=== PATIENT | female | born 1940 | race African-American/Black ===

== ENCOUNTER 2022-09-10 16:18 | Emergency (ER) | payer OTHER ==
[~2022-09-10] VITALS: Ht 157.5 cm; Wt 45.0 kg
[2022-09-10] MEDS ORDERED: SODIUM CHLORIDE 0.9% 500 ML IVB ONE (16:45)
[2022-09-10 17:15] LABS: Basophils # (auto) 0.1 10 ^3/uL (0-0.2); Basophils % (auto) 3.2 % (0.0-2.0); Eosinophils # (auto) 0.3 10 ^3/uL (0-0.8); Eosinophils % (auto) 8.5 % (0.0-7.0); Hematocrit 34.2 % (36.0-46.0); Hemoglobin 10.5 g/dL (12.2-16.2); Lymphocytes # (auto) 0.7 10 ^3/uL (0.4-5.4); Lymphocytes % (auto) 20.2 % (10.0-50.0); Mean Corpuscular Hemoglobin 23.2 pg (28.0-32.0); Mean Corpuscular Hgb Conc. 30.7 g/dL (32.0-36.0); Mean Corpuscular Volume 75.4 fL (80.0-100.0); Monocytes # (auto) 0.1 10 ^3/uL (0-1.3); Monocytes % (auto) 1.8 % (0.0-12.0); Neutrophils # (auto) 2.4 10 ^3/uL (1.6-8.6); Neutrophils % (auto) 66.3 % (37.0-80.0); Red Blood Cells 4.54 10^6/uL (4.0-5.20); Red Cell Distribution Width 17.2 % (11.8-14.3); White Blood Cell 3.7 10^3/uL (4.4-10.8)
[2022-09-10 17:47] LABS: BUN/Creatinine Ratio 14.4; Calcium 8.9 mg/dL (8.5-10.1); Magnesium 2.3 mg/dL (1.6-2.6); Potassium 3.4 mmol/L (3.5-5.1)
[2022-09-10 18:02] LABS: Bilirubin, Total 0.2 mg/dL (0.2-1.0); Total Protein 7.1 g/dL (6.4-8.2)
[2022-09-10 20:00] VITALS: BP 111/54
== END 2022-09-10 21:45 | disposition home or self-care (01) ==
LOC: EDBD 16:18 → ER 16:18
DX: R55 Syncope and collapse (principal); F17.210 Nicotine dependence, cigarettes, uncomplicated; F12.10 Cannabis abuse, uncomplicated
CPT/HCPCS: 36415; 70450; 71045; 80053; 80320; 83735; 84484; 85025; 96360; 99285; J7040

== ENCOUNTER 2022-09-19 08:21 | Inpatient (IN) | payer OTHER ==
[2022-09-18 22:08] VITALS: BP 132/69
[~2022-09-19] VITALS: Ht 162.6 cm; Wt 55.5 kg
[2022-09-19] MEDS ORDERED: ACETAMINOPHEN 325 MG TAB PO ONE (10:30)
[2022-09-19 11:00] LABS: Eosinophils # (auto) 0 10 ^3/uL (0-0.8); Lymphocytes # (auto) 0.9 10 ^3/uL (0.4-5.4); Mean Corpuscular Hemoglobin 23.8 pg (28.0-32.0); Mean Corpuscular Hgb Conc. 32.3 g/dL (32.0-36.0)
[2022-09-19 11:04] LABS: Basophils # (auto) 0 10 ^3/uL (0-0.2); Basophils % (auto) 0.6 % (0.0-2.0); Eosinophils % (auto) 0.5 % (0.0-7.0); Hematocrit 36.2 % (36.0-46.0); Hemoglobin 11.7 g/dL (12.2-16.2); Lymphocytes % (auto) 12.4 % (10.0-50.0); Mean Corpuscular Volume 73.5 fL (80.0-100.0); Monocytes # (auto) 0.5 10 ^3/uL (0-1.3); Monocytes % (auto) 7.1 % (0.0-12.0); Neutrophils # (auto) 6.1 10 ^3/uL (1.6-8.6); Neutrophils % (auto) 79.4 % (37.0-80.0); Nucleated Red Blood Cells % 0.1 %; Red Blood Cells 4.93 10^6/uL (4.0-5.20); White Blood Cell 7.7 10^3/uL (4.4-10.8)
[2022-09-19 11:59] LABS: Albumin 3.3 g/dL (3.4-5.0); BUN/Creatinine Ratio 21.7; Calcium 9.3 mg/dL (8.5-10.1); Magnesium 2.2 mg/dL (1.6-2.6); Potassium 3.4 mmol/L (3.5-5.1)
[2022-09-19 12:02] LABS: Total Protein 7.9 g/dL (6.4-8.2)
[2022-09-19] MEDS ORDERED: MORPHINE SULFATE INJ 2 MG/ml SYRG IV ONE (13:30)
[2022-09-19 13:37] LABS: Urine Blood 1+ /uL (Negative)
[2022-09-19] MEDS ORDERED: POTASSIUM EFFERVESENT TAB 25 MEQ PO ONE ×2 (14:30→14:45)
[2022-09-19] MEDS ORDERED: ACETAMINOPHEN 325 MG TAB PO PRN (14:30)
[2022-09-19] MEDS ORDERED: GABA800T97 PO (14:38)
[2022-09-19] MEDS: SODIUM CHLORIDE 0.9% 1,000 ML IV SCH (15:00)
[2022-09-19 15:13] LABS: INR 0.98 (0.9-1.15)
[2022-09-19] MEDS ORDERED: cefTRIAXone 1GM/50ML D5W 50 ML IV ONE (18:00)
[2022-09-19] MEDS: ASCORBIC ACID 500 MG TAB PO SCH (22:51)
[2022-09-19] MEDS: HEPARIN SODIUM (PORCINE) 5000 UNITS/ML 1ML VIAL SC SCH (22:55)
[2022-09-19 23:10] LABS: Amphetamine Screen, Urine NEGATIVE (NEGATIVE); Barbiturate Scree,Urine NEGATIVE (NEGATIVE); Benzodiazephine Screen, Urine NEGATIVE (NEGATIVE); Cannabinoid Screen, Urine POSITIVE (NEGATIVE); Cocaine Screen, Urine NEGATIVE (NEGATIVE); Opiate Scree,Urine NEGATIVE (NEGATIVE); Phencyclidine Screen, Urine NEGATIVE (NEGATIVE)
[2022-09-20] MEDS: SODIUM CHLORIDE 0.9% 1,000 ML IV SCH (03:07)
[2022-09-20 08:22] VITALS: BP 141/64
[2022-09-20 08:30] VITALS: BP 141/64
[2022-09-20] MEDS: cefTRIAXone 1GM/50ML D5W 50 ML IV SCH (09:30)
[2022-09-20] MEDS: ZINC SULFATE 220mg CAP or TAB PO SCH (09:32)
[2022-09-20] MEDS: HEPARIN SODIUM (PORCINE) 5000 UNITS/ML 1ML VIAL SC SCH (09:32)
[2022-09-20] MEDS: MULTIPLE VITAMIN TAB PO SCH (09:32)
[2022-09-20] MEDS: ASCORBIC ACID 500 MG TAB PO SCH ×2 (09:32→21:18)
[2022-09-20] MEDS ORDERED: TRANEXAMIC ACID 20 ML ONE (10:07)
[2022-09-20] MEDS: VANCOMYCIN HCL 1000 MG VL ONE ×2 (10:18→13:48)
[2022-09-20 10:26] LABS: Eosinophils # (auto) 0.1 10 ^3/uL (0-0.8); Monocytes # (auto) 0.6 10 ^3/uL (0-1.3); Neutrophils # (auto) 5.3 10 ^3/uL (1.6-8.6); Nucleated Red Blood Cells % 0.1 %; White Blood Cell 7.5 10^3/uL (4.4-10.8)
[2022-09-20 10:29] LABS: Basophils # (auto) 0 10 ^3/uL (0-0.2); Basophils % (auto) 0.6 % (0.0-2.0); Eosinophils % (auto) 1.8 % (0.0-7.0); Hematocrit 31.8 % (36.0-46.0); Lymphocytes # (auto) 1.4 10 ^3/uL (0.4-5.4); Lymphocytes % (auto) 19.1 % (10.0-50.0); Mean Corpuscular Hemoglobin 23.3 pg (28.0-32.0); Mean Corpuscular Hgb Conc. 31.4 g/dL (32.0-36.0); Mean Corpuscular Volume 74.1 fL (80.0-100.0); Monocytes % (auto) 7.6 % (0.0-12.0); Neutrophils % (auto) 70.9 % (37.0-80.0); Red Blood Cells 4.29 10^6/uL (4.0-5.20); Red Cell Distribution Width 16.6 % (11.8-14.3)
[2022-09-20 10:56] LABS: Albumin 2.9 g/dL (3.4-5.0); Calcium 9.1 mg/dL (8.5-10.1); Potassium 4.5 mmol/L (3.5-5.1)
[2022-09-20 10:59] LABS: BUN/Creatinine Ratio 38.2; Bilirubin, Total 0.7 mg/dL (0.2-1.0); Total Protein 6.9 g/dL (6.4-8.2)
[2022-09-20] MEDS ORDERED: PROPOFOL 10 MG/ML 20 ML IV ONE ×2 (11:41→13:59)
[2022-09-20] MEDS ORDERED: GLYCOPYRROLATE 0.2 MG/ML 1ML VIAL ONE (11:42)
[2022-09-20] MEDS ORDERED: LIDOCAINE 2% (LOCAL ANESTH.) PF 5ml SDV ONE (11:42)
[2022-09-20] MEDS ORDERED: ONDANSETRON HCL 4 MG/2 ML VIAL ONE (11:42)
[2022-09-20] MEDS ORDERED: DexAMETHasone SOD PHOS 10MG/1ML VIAL INJ ONE (11:43)
[2022-09-20] MEDS ORDERED: ceFAZolin 1GM VL ONE (12:40)
[2022-09-20] MEDS ORDERED: SODIUM CHLORIDE LOCK 10 ML ONE ×2 (12:40→12:58)
[2022-09-20] MEDS ORDERED: PHENYLEPHRINE HCL 10 MG/ML VL ONE (13:19)
[2022-09-20] MEDS ORDERED: KETOROLAC TROMETH 30 MG/ML 1ML VIAL ONE (13:23)
[2022-09-20] MEDS ORDERED: ONDANSETRON HCL 4 MG/2 ML VIAL IV PRN (14:15)
[2022-09-20] MEDS ORDERED: LACTATED RINGER'S 1,000 ML IV SCH (14:15)
[2022-09-20] MEDS: HYDROcodone-ACET 10/325MG TAB PO PRN ×2 (16:14→21:19)
[2022-09-20 16:37] VITALS: BP 136/56
[2022-09-20 20:00] VITALS: BP 137/68
[2022-09-20] MEDS: ceFAZolin 1GM/50ML 50 ML IV SCH (21:18)
[2022-09-20 22:19] LABS: Ferritin 86.5 ng/mL (10-322); Folate (Folic Acid) 22.7 ng/mL (5.38-24)
[2022-09-20 22:29] VITALS: BP 137/68
[2022-09-20 22:54] LABS: % Iron Saturation 3.9 % (15-50)
[2022-09-21 04:49] VITALS: BP 154/69
[2022-09-21] MEDS: HYDROcodone-ACET 10/325MG TAB PO PRN ×3 (05:44→14:38)
[2022-09-21] MEDS: ceFAZolin 1GM/50ML 50 ML IV SCH (05:44)
[2022-09-21 05:56] VITALS: BP 139/64
[2022-09-21 06:38] LABS: Basophils # (auto) 0 10 ^3/uL (0-0.2); Eosinophils # (auto) 0 10 ^3/uL (0-0.8); Hemoglobin 8.9 g/dL (12.2-16.2); White Blood Cell 10.7 10^3/uL (4.4-10.8)
[2022-09-21 06:41] LABS: Basophils % (auto) 0.2 % (0.0-2.0); Hematocrit 27.9 % (36.0-46.0); Lymphocytes # (auto) 0.6 10 ^3/uL (0.4-5.4); Mean Corpuscular Hemoglobin 23.7 pg (28.0-32.0); Monocytes # (auto) 0.6 10 ^3/uL (0-1.3); Monocytes % (auto) 5.3 % (0.0-12.0); Neutrophils # (auto) 9.5 10 ^3/uL (1.6-8.6); Neutrophils % (auto) 88.5 % (37.0-80.0); Nucleated Red Blood Cells % 0.2 %; Red Blood Cells 3.76 10^6/uL (4.0-5.20); Red Cell Distribution Width 16.3 % (11.8-14.3)
[2022-09-21 06:51] LABS: BUN/Creatinine Ratio 39.7; Calcium 8.8 mg/dL (8.5-10.1); Potassium 3.9 mmol/L (3.5-5.1)
[2022-09-21] MEDS: HYDROcodone-ACET 5/325MG TAB PO PRN (07:02)
[2022-09-21 09:00] VITALS: BP 139/66
[2022-09-21] MEDS: MULTIPLE VITAMIN TAB PO SCH (10:57)
[2022-09-21] MEDS: ASCORBIC ACID 500 MG TAB PO SCH ×2 (10:57→21:15)
[2022-09-21] MEDS: ZINC SULFATE 220mg CAP or TAB PO SCH (10:57)
[2022-09-21] MEDS: ENOXAPARIN SOD 40 MG/0.4 ML SYRINGE SC SCH (10:57)
[2022-09-21] MEDS: cefTRIAXone 1GM/50ML D5W 50 ML IV SCH (10:57)
[2022-09-21 13:08] VITALS: BP 147/81
[2022-09-21] MEDS: KETOROLAC TROMETH 30 MG/ML 1ML VIAL IV PRN (13:44)
[2022-09-21 16:53] VITALS: BP 137/70
[2022-09-21] MEDS ORDERED: POLYETHYLENE GLYCOL 17 GM PWDR PO ONE (18:30)
[2022-09-21] MEDS ORDERED: IRON SUCROSE COMPLEX 200 MG in SODIUM CHL 0.9% 100 ML IV ONE (18:30)
[2022-09-21] MEDS ORDERED: ERGOCALCIFEROL 50,000 UNIT(1.25MG) CAP PO SCH (18:30)
[2022-09-21] MEDS ORDERED: SODIUM FERR GLUC 62.5MG/5ML 125 MG in SODIUM CHL 0.9% 100 ML IV ONE (18:30)
[2022-09-21 22:28] VITALS: BP 159/63
[2022-09-22 04:53] VITALS: BP 153/71
[2022-09-22 05:15] LABS: Basophils # (auto) 0.1 10 ^3/uL (0-0.2); Eosinophils # (auto) 0.2 10 ^3/uL (0-0.8); Hematocrit 26.1 % (36.0-46.0); Mean Corpuscular Hgb Conc. 31.6 g/dL (32.0-36.0)
[2022-09-22 05:19] LABS: Basophils % (auto) 1.5 % (0.0-2.0); Eosinophils % (auto) 2.2 % (0.0-7.0); Hemoglobin 8.3 g/dL (12.2-16.2); Lymphocytes # (auto) 1.1 10 ^3/uL (0.4-5.4); Lymphocytes % (auto) 14.9 % (10.0-50.0); Mean Corpuscular Hemoglobin 23.5 pg (28.0-32.0); Mean Corpuscular Volume 74.4 fL (80.0-100.0); Monocytes # (auto) 0.4 10 ^3/uL (0-1.3); Monocytes % (auto) 5.4 % (0.0-12.0); Neutrophils # (auto) 5.6 10 ^3/uL (1.6-8.6); Red Blood Cells 3.51 10^6/uL (4.0-5.20); Red Cell Distribution Width 16.6 % (11.8-14.3); White Blood Cell 7.3 10^3/uL (4.4-10.8)
[2022-09-22 05:38] LABS: Calcium 8.8 mg/dL (8.5-10.1); Potassium 3.9 mmol/L (3.5-5.1)
[2022-09-22 05:40] LABS: BUN/Creatinine Ratio 34.3
[2022-09-22 08:14] VITALS: BP 125/108
[2022-09-22] MEDS: ZINC SULFATE 220mg CAP or TAB PO SCH (10:01)
[2022-09-22] MEDS: ASCORBIC ACID 500 MG TAB PO SCH ×2 (10:01→22:51)
[2022-09-22] MEDS: ENOXAPARIN SOD 40 MG/0.4 ML SYRINGE SC SCH (10:01)
[2022-09-22] MEDS: MULTIPLE VITAMIN TAB PO SCH (10:02)
[2022-09-22] MEDS: cefTRIAXone 1GM/50ML D5W 50 ML IV SCH (10:03)
[2022-09-22] MEDS: POLYETHYLENE GLYCOL 17 GM PWDR PO SCH (10:04)
[2022-09-22] MEDS: HYDROcodone-ACET 10/325MG TAB PO PRN ×3 (10:38→22:51)
[2022-09-22] MEDS ORDERED: SODIUM FERR GLUC 62.5MG/5ML 125 MG in SODIUM CHL 0.9% 100 ML IV SCH (12:00)
[2022-09-22 12:43] VITALS: BP 125/71
[2022-09-22 16:27] VITALS: BP 109/51
[2022-09-22] MEDS: IRON SUCROSE COMPLEX 200 MG in SODIUM CHL 0.9% 100 ML IV SCH (16:29)
[2022-09-22] MEDS: KETOROLAC TROMETH 30 MG/ML 1ML VIAL IV PRN (20:35)
[2022-09-23] MEDS: KETOROLAC TROMETH 30 MG/ML 1ML VIAL IV PRN ×3 (03:35→18:52)
[2022-09-23 05:00] VITALS: BP 141/54
[2022-09-23 05:31] LABS: Basophils # (auto) 0.1 10 ^3/uL (0-0.2); Hemoglobin 8.5 g/dL (12.2-16.2); Neutrophils # (auto) 4.9 10 ^3/uL (1.6-8.6); Red Cell Distribution Width 16.6 % (11.8-14.3); White Blood Cell 6.8 10^3/uL (4.4-10.8)
[2022-09-23 05:33] LABS: Basophils % (auto) 1.2 % (0.0-2.0); Eosinophils # (auto) 0.2 10 ^3/uL (0-0.8); Eosinophils % (auto) 2.9 % (0.0-7.0); Hematocrit 26.1 % (36.0-46.0); Lymphocytes # (auto) 1.1 10 ^3/uL (0.4-5.4); Lymphocytes % (auto) 15.6 % (10.0-50.0); Mean Corpuscular Hemoglobin 24.4 pg (28.0-32.0); Mean Corpuscular Hgb Conc. 32.5 g/dL (32.0-36.0); Mean Corpuscular Volume 74.9 fL (80.0-100.0); Monocytes # (auto) 0.5 10 ^3/uL (0-1.3); Neutrophils % (auto) 72.3 % (37.0-80.0); Nucleated Red Blood Cells % 0.2 %; Red Blood Cells 3.49 10^6/uL (4.0-5.20)
[2022-09-23 06:00] LABS: BUN/Creatinine Ratio 33.3; Calcium 8.8 mg/dL (8.5-10.1); Potassium 3.5 mmol/L (3.5-5.1)
[2022-09-23 08:57] VITALS: BP 125/62
[2022-09-23] MEDS: cefTRIAXone 1GM/50ML D5W 50 ML IV SCH (09:02)
[2022-09-23] MEDS: ASCORBIC ACID 500 MG TAB PO SCH ×2 (09:04→21:00)
[2022-09-23] MEDS: ENOXAPARIN SOD 40 MG/0.4 ML SYRINGE SC SCH (09:04)
[2022-09-23] MEDS: MULTIPLE VITAMIN TAB PO SCH (09:04)
[2022-09-23] MEDS: HYDROcodone-ACET 10/325MG TAB PO PRN ×3 (09:05→21:01)
[2022-09-23] MEDS: ZINC SULFATE 220mg CAP or TAB PO SCH (09:05)
[2022-09-23] MEDS: POLYETHYLENE GLYCOL 17 GM PWDR PO SCH (10:00)
[2022-09-23] MEDS: IRON SUCROSE COMPLEX 200 MG in SODIUM CHL 0.9% 100 ML IV SCH (12:00)
[2022-09-23 13:00] VITALS: BP 149/64
[2022-09-23 17:00] VITALS: BP 142/63
[2022-09-23 22:00] VITALS: BP 169/72
[2022-09-24] VITALS (8 sets, daily range): BP systolic 100–156; BP diastolic 57–92
[2022-09-24] MEDS: ASCORBIC ACID 500 MG TAB PO SCH ×2 (10:11→21:00)
[2022-09-24] MEDS: cefTRIAXone 1GM/50ML D5W 50 ML IV SCH (10:11)
[2022-09-24] MEDS: ZINC SULFATE 220mg CAP or TAB PO SCH (10:11)
[2022-09-24] MEDS: MULTIPLE VITAMIN TAB PO SCH (10:11)
[2022-09-24] MEDS: ENOXAPARIN SOD 40 MG/0.4 ML SYRINGE SC SCH (10:12)
[2022-09-24] MEDS: POLYETHYLENE GLYCOL 17 GM PWDR PO SCH (10:12)
[2022-09-24] MEDS: IRON SUCROSE COMPLEX 200 MG in SODIUM CHL 0.9% 100 ML IV SCH (12:54)
[2022-09-24] MEDS: HYDROcodone-ACET 10/325MG TAB PO PRN (20:59)
[2022-09-25] MEDS: HYDROcodone-ACET 10/325MG TAB PO PRN ×4 (04:50→21:10)
[2022-09-25 05:41] VITALS: BP 148/80
[2022-09-25 08:39] VITALS: BP 129/57
[2022-09-25] MEDS: cefTRIAXone 1GM/50ML D5W 50 ML IV SCH (09:31)
[2022-09-25] MEDS: MULTIPLE VITAMIN TAB PO SCH (09:32)
[2022-09-25] MEDS: POLYETHYLENE GLYCOL 17 GM PWDR PO SCH (09:32)
[2022-09-25] MEDS: ASCORBIC ACID 500 MG TAB PO SCH ×2 (09:32→21:10)
[2022-09-25] MEDS: ZINC SULFATE 220mg CAP or TAB PO SCH (09:32)
[2022-09-25] MEDS: IRON SUCROSE COMPLEX 200 MG in SODIUM CHL 0.9% 100 ML IV SCH (09:37)
[2022-09-25] MEDS: ENOXAPARIN SOD 40 MG/0.4 ML SYRINGE SC SCH (09:37)
[2022-09-25 13:53] VITALS: BP 154/70
[2022-09-25 16:30] VITALS: BP 132/111
[2022-09-25 20:00] VITALS: BP 131/51
[2022-09-25 22:00] VITALS: BP 146/87
[2022-09-26] MEDS: HYDROcodone-ACET 10/325MG TAB PO PRN ×3 (01:47→12:23)
[2022-09-26 05:00] VITALS: BP 128/64
[2022-09-26 06:50] LABS: Potassium 3.8 mmol/L (3.5-5.1)
[2022-09-26 06:52] LABS: BUN/Creatinine Ratio 22.7
[2022-09-26 06:53] LABS: Basophils # (auto) 0.1 10 ^3/uL (0-0.2); Eosinophils # (auto) 0.2 10 ^3/uL (0-0.8); Hematocrit 30.9 % (36.0-46.0); Hemoglobin 9.9 g/dL (12.2-16.2); Lymphocytes # (auto) 1.3 10 ^3/uL (0.4-5.4); Monocytes # (auto) 0.4 10 ^3/uL (0-1.3)
[2022-09-26 06:56] LABS: Basophils % (auto) 1.2 % (0.0-2.0); Eosinophils % (auto) 3.7 % (0.0-7.0); Lymphocytes % (auto) 22.7 % (10.0-50.0); Mean Corpuscular Hemoglobin 24.7 pg (28.0-32.0); Mean Corpuscular Hgb Conc. 32.1 g/dL (32.0-36.0); Mean Corpuscular Volume 76.8 fL (80.0-100.0); Monocytes % (auto) 7.4 % (0.0-12.0); Neutrophils # (auto) 3.8 10 ^3/uL (1.6-8.6); Nucleated Red Blood Cells % 0.3 %; Red Blood Cells 4.02 10^6/uL (4.0-5.20); Red Cell Distribution Width 16.9 % (11.8-14.3); White Blood Cell 5.9 10^3/uL (4.4-10.8)
[2022-09-26] MEDS: cefTRIAXone 1GM/50ML D5W 50 ML IV SCH (08:35)
[2022-09-26 08:48] VITALS: BP 146/59
[2022-09-26] MEDS: POLYETHYLENE GLYCOL 17 GM PWDR PO SCH (09:09)
[2022-09-26] MEDS: ASCORBIC ACID 500 MG TAB PO SCH ×2 (09:09→21:12)
[2022-09-26] MEDS: MULTIPLE VITAMIN TAB PO SCH (09:10)
[2022-09-26] MEDS: ENOXAPARIN SOD 40 MG/0.4 ML SYRINGE SC SCH ×3 (09:10→10:00)
[2022-09-26] MEDS: ZINC SULFATE 220mg CAP or TAB PO SCH (09:10)
[2022-09-26] MEDS: IRON SUCROSE COMPLEX 200 MG in SODIUM CHL 0.9% 100 ML IV SCH (12:28)
[2022-09-26 12:52] VITALS: BP 140/74
[2022-09-26 16:28] VITALS: BP 122/51
[2022-09-26] MEDS ORDERED: LACTULOSE 20Gm/30ML SOLN PO ONE (16:45)
[2022-09-26] MEDS: traMADol HCL 50 MG TAB PO PRN (17:49)
[2022-09-26] MEDS: HYDROcodone-ACET 5/325MG TAB PO PRN (21:14)
[2022-09-26 22:00] VITALS: BP 104/85
[2022-09-27 05:00] VITALS: BP 141/71
[2022-09-27] MEDS: traMADol HCL 50 MG TAB PO PRN (05:24)
[2022-09-27 08:00] VITALS: BP 165/89
[2022-09-27] MEDS: ZINC SULFATE 220mg CAP or TAB PO SCH (08:44)
[2022-09-27] MEDS: POLYETHYLENE GLYCOL 17 GM PWDR PO SCH (08:44)
[2022-09-27] MEDS: HYDROcodone-ACET 5/325MG TAB PO PRN (08:44)
[2022-09-27] MEDS: MULTIPLE VITAMIN TAB PO SCH (08:44)
[2022-09-27] MEDS: ASCORBIC ACID 500 MG TAB PO SCH (08:44)
[2022-09-27] MEDS: ENOXAPARIN SOD 40 MG/0.4 ML SYRINGE SC SCH (08:46)
[2022-09-27 11:20] VITALS: BP 165/89
[2022-09-27 12:00] VITALS: BP 124/73
[2022-09-27] MEDS: IRON SUCROSE COMPLEX 200 MG in SODIUM CHL 0.9% 100 ML IV SCH (12:00)
== END 2022-09-27 15:59 | disposition home health service (06) | DRG 521 ==
LOC: ER 08:21 → EDBD 08:21 → OVERFLOW 14:18 → WEST WING 22:05
PROVIDERS: ADMIT Nurse Practitioner Family; ATTEND Internal Medicine
PROC: 0SRR0J9 Replacement of Right Hip Joint, Femoral Surface with Synthetic Substitute, Cemented, Open Approach (ICD-10-PCS; principal; 2022-09-20 12:38)
DX: S72.001A Fracture of unspecified part of neck of right femur, initial encounter for closed fracture (principal); E43 Unspecified severe protein-calorie malnutrition; J90 Pleural effusion, not elsewhere classified; D62 Acute posthemorrhagic anemia; N30.00 Acute cystitis without hematuria; E87.6 Hypokalemia; Z20.822 Contact with and (suspected) exposure to COVID-19; F03.90 Unspecified dementia, unspecified severity, without behavioral disturbance, psychotic disturbance, mood disturbance, and anxiety; M19.90 Unspecified osteoarthritis, unspecified site; G89.29 Other chronic pain; E55.9 Vitamin D deficiency, unspecified; Z68.21 Body mass index [BMI] 21.0-21.9, adult
CPT/HCPCS: 36415; 71045; 72170; 73130; 73562; 73700; 80048; 80053; 80307; 81003; 82306; 82607; 82728; 82746; 83036; 83540; 83550; 83615; 83735; 84439; 84443; 84484; 85025; 85045; 85610; 86850; 86900; 86901; 87081; 87426; 93005; 93306; 96374; 97110; 97116; 97163; 97530; G0378; J0690; J0696; J1100; J1756; J1885; J2001; J2405; J2704